=== PATIENT | female | born 1990 | race Caucasian/White ===

== ENCOUNTER 2025-09-26 08:57 | Emergency (ER) | payer OTHER, SELFPAY ==
[2025-09-26 09:11] VITALS: BP 144/93
--- NOTE | 2025-09-26 10:30 | ED.GENMED ---
History of Present Illness
General
Chief Complaint: Generalized Pain
Time Seen by Provider: 09/26/25 10:30
History of Present Illness
History of Present Illness:
FOCUSED PAST MEDICAL HISTORY
- Polycystic kidney disease, anxiety/depression, asthma
REVIEW OF OLD RECORDS
- The patient was seen here with flank pain in January 2023; at that time labs were unremarkable and numerous cysts were noted at both kidneys
Note:
CHIEF COMPLAINT(S)
Abdominal pain and nausea.
HISTORY OF PRESENT ILLNESS
The patient is a 34-year-old female with a history of polycystic kidney disease, presenting with abdominal pain and nausea. The symptoms began on Friday night with mild right-sided pain. She reported that by the following day, her entire body felt
painful, as if bruised, and she experienced significant fullness after minimal food intake, stating, 'I took three spoonfuls and it felt like I had eaten a buffet of food.' She also described ongoing nausea and an inability to eat. The pain,
initially localized to the right side, has since become bilateral.
The patient mentioned a prior ER visit where blood work and imaging indicated kidney cysts, but this episode feels different. She suspects the kidneys might be involved again. The patient reported undergoing an MRCP at [facility], which revealed some
findings, though details were not fully accessible. Recently, she missed a dose of her medications, allopurinol, and potassium, but took them the following day.
PAST MEDICAL AND SURIGICAL HISTORY
Polycystic kidney disease.
EXTERNAL RECORDS REVIEWED
MRCP was performed at [facility], showing concerning findings but specifics were not discussed.
CHRONIC MEDICAL CONDITIONS SIGNIFICANTLY AFFECTING CARE
Polycystic kidney disease.
MEDICATIONS
Allopurinol, Potassium.
PHYSICAL EXAM
General: Alert, no acute distress. Appears fairly comfortable.
Skin: Warm, dry.
Head: Normocephalic, atraumatic.
Neck: Supple, trachea midline.
Eyes, Ears, Nose, Mouth, and Throat: Oral mucosa moist.
Cardiovascular: Normal peripheral perfusion, No edema.
Respiratory: Respirations are non-labored.
Gastrointestinal: Mild right lower quadrant tenderness and mild epigastric tenderness, abdomen nondistended.
Back: Mild tenderness upon percussion on the right side.
Musculoskeletal: Normal range of motion, normal strength.
Neurological: Alert and oriented to person, place, time, and situation, No focal neurological deficit observed.
Psychiatric: Cooperative, appropriate mood & affect.
PROBLEM LIST
Acute: Abdominal pain, Nausea.
Chronic: Polycystic kidney disease.
PLAN
- Administer intravenous fluids.
- Proceed with a CT scan.
- Review prior records, if available, to correlate with current findings and determine if further MRCP with contrast is necessary.
- Monitor kidney function given the history of elevated uric acid levels.
DIFFERENTIAL DIAGNOSIS
The Differential Diagnosis includes, in no particular order and is not limited to:
1. Pyelonephritis
2. Nephrolithiasis (Kidney stones)
3. Cyst infection or rupture in polycystic kidney disease
4. Urinary tract infection
5. Gastroenteritis
6. Appendicitis
7. Inflammatory bowel disease
8. Gallbladder disease
9. Pancreatitis
10. Bowel obstruction.
RADIOLOGY
- CT abdomen pelvis obtained shows PCKD but no acute abnormality
LABS
- White count and hemoglobin unremarkable, chemistries unremarkable, hCG negative
UPDATE
-SUMMARY OF ENCOUNTER
The patient, a 34-year-old female with a history of polycystic kidney disease, presented to the emergency department with abdominal pain and nausea, which began as mild right-sided pain but later became bilateral. The patient reported experiencing
significant fullness after minimal food intake and ongoing nausea. On examination, she had mild tenderness in the right lower quadrant and epigastric region but no signs of acute bleeding or hemorrhage. Radiology indicated numerous renal cysts
consistent with her known kidney condition, but no acute findings were observed. Urinary symptoms were queried to further investigate the abdominal discomfort.
PLAN
Administer intravenous fluids and proceed with a CT scan to assess for any acute abdominal issues. Review prior records to correlate with current findings and determine the necessity of further imaging, such as an MRCP with contrast, given the
patients history. Monitor kidney function due to elevated uric acid levels.
INDEPENDENT REVIEW OF LABS AND INTERPRETATION OF TESTS
My independent interpretation of imaging indicates numerous renal cysts consistent with polycystic kidney disease, with no active bleeding or large fluid collections. There was a trace amount of physiologic pre-fluid, likely normal.
MEDICAL DECISION MAKING
1. Number and Complexity of Problems Addressed: Chronic conditions affecting care include polycystic kidney disease. Differential Diagnosis: Pyelonephritis, Nephrolithiasis (Kidney stones), Cyst infection or rupture in polycystic kidney disease,
Urinary tract infection, Gastroenteritis, Appendicitis, Inflammatory bowel disease, Gallbladder disease, Pancreatitis, Bowel obstruction.
2. Data:
- Category 1: My independent interpretation of the imaging confirmed numerous renal cysts but no acute changes.
3. Risk: Consideration of Admission/Observation: Escalation of care including admission/observation was considered given the complexity and risk of the patients presenting complaint and underlying comorbidities. However, ultimately, the patient is
deemed safe for outpatient management with close follow-up, as the work-up does not reveal any acute life/organ-threatening processes, and symptoms are reasonably controlled.
Phy Exam
Physical Exam
Physical Exam:
See HPI
Course
Orders/Labs/Results
Orders:
Orders
09/26/25 10:25
Complete Blood Count/With Diff Urgent
Comprehensive Metabolic Panel Urgent
HCG, Serum Qualitative Screen Urgent
Comment: ADD ON
09/26/25 10:41
Add On- LAB Urgent
Tests Added?: hcg qual screen
CT Abd/pelvis W Iv Cont Urgent
Comment:
Reason For Exam: diffuse abd pain; h/o PCKD
0.9% Sodium Chloride 1000 ml [Nss] 1,000 ml IV BOLUS
09/26/25 13:18
Urinalysis Reflex To Culture Urgent
Date Specimen was Collected: 09/26/25
Time Specimen was Collected: 13:15
Urine Microscopic Reflex Cult Urgent
Abnormal Lab Results
09/26/25 09/26/25
10: 13:18
MCHC 32.7 L g/dL
(33.0-37.0)
Absolute Lymphs (auto) 1.1 L 10^3/uL
(1.2-3.4)
Glucose 107 H mg/dl
(70-99)
Urine Albumin (Reflex) 1+ A
(Neg - Trace)
09/26/25 10:25
09/26/25 10:25
Vital Signs
Initial and Last Documented VS:
Initial Vital Signs
Temp Pulse Resp BP Pulse Ox
36.5 C 81 20 144/93 98
09/26/25 09:11 09/26/25 09:11 09/26/25 09:11 09/26/25 09:11 09/26/25 09:11
Last Documented Vital Signs
Temp Pulse Resp BP Pulse Ox
36.7 C 69 18 135/93 99
09/26/25 11:10 09/26/25 11:10 09/26/25 11:10 09/26/25 11:10 09/26/25 11:10
*Pulse Oximetry
SaO2: 98
Oxygen Mode of Delivery: Room air
Patient hypoxic: no
*Critical Care Note
Total Time (30-74mins, 75-104mins- exclusive of procedures): Not Applicable
ED Attending Note
-
Portions of this chart may have been created with voice recognition software.� Occasional wrong word or��sound alike� substitutions may have occurred due to the inherent limitations of voice recognition software.
Discharge Plan
Departure
Patient Disposition: Home (Routine Discharge)
Date of Disposition: 09/26/25
Time of Disposition: 14:10
Patient with high blood pressure during this ER visit?: Yes
Discharge Problem:
Abdominal pain
Instructions: Abdominal pain in adults (DC), BLOOD PRESSURE
Prescriptions:
No Action
oxycodone-acetaminophen [Percocet] 5-325 mg tablet
1 tab PO Q6HPRN PRN (Reason: pain) Qty: 10 0RF
Referrals:
Guille Harvey, DO [Family Provider]
Activity Restrictions/Additional Instructions:
Basic blood work is unremarkable. Urinalysis shows no sign of blood nor infection.
CAT scan of the abdomen pelvis with IV contrast:
1. Trace pelvic free fluid, which may be physiologic.
2. Innumerable renal cysts on each side, consistent with polycystic kidney disease. Small hepatic cysts.
Follow with your primary care doctor. Return if worse or other concerns.
Interventions
Interventions:
*Risk Screen - Suicide Last Done: 09/26/25 09:11
*General Assessment Last Done: 09/26/25 11:05
*Neglect/Abuse Screening Last Done: 09/26/25 11:05
*ED COVID-19 Vaccine History Last Done: 09/26/25 11:05
*ED Influenza Vaccine History Last Done: 09/26/25 11:05
[facility] Fall Risk Assessment Tool Last Done: 09/26/25 10:28
Discharge Date and Time
Print Language: SAMI
[2025-09-26 10:35] LABS: Hematocrit 38.8 % (37.0-47.0); Hemoglobin 12.7 g/dL (12.0-16.0); Mean Corp Hgb Conc. 32.7 g/dL (33.0-37.0); Mean Corpuscular Volume 86.6 fL (81.0-99.0); Nucleated Red Blood Cells % 0 %; Platelet Count 193 10^3/uL (130-400); Red Cell Dist. Width 13.0 % (11.5-14.5)
[2025-09-26 10:51] LABS: ALT (SGPT) 18 U/L (0-35); AST (SGOT) 22 U/L (14-36); Albumin 4.2 g/dl (3.5-5.0); Alkaline Phosphatase 97 U/L (38-126); Blood Urea Nitrogen 17 mg/dl (7-17); Calcium 8.7 mg/dl (8.4-10.2); Carbon Dioxide 28 mmol/L (22-30); Chloride 103 mmol/L (98-107); Glucose 107 mg/dl (70-99); Potassium 4.0 mmol/L (3.5-5.1); Sodium 135 mmol/L (135-145); Total Protein 6.9 g/dl (6.3-8.2); eGFR > 60.00
[2025-09-26 11:10] VITALS: BP 135/93; BMI 26.7
[2025-09-26] MEDS: NSS 1000 IV (11:12)
[2025-09-26 11:58] LABS: HCG, Serum Qualitative Screen Negative
[2025-09-26 13:56] LABS: Urine Character Clear (Clear)
[2025-09-26 14:12] LABS: Urine Red Blood Cell None Seen /HPF (0-2); Urine White Cell 0-2 /HPF (0-5)
[2025-09-26 14:32] VITALS: BP 157/106
[2025-09-26 14:35] VITALS: BP 153/94
== END 2025-09-26 14:50 | disposition home or self-care (01) ==
LOC: EMR 08:57
PROVIDERS: EMERGENCY PHYSICIAN Emergency Medicine; FAMILY PHYSICIAN Internal Medicine
DX: R10.9 Unspecified abdominal pain (principal); J45.909 Unspecified asthma, uncomplicated; Q61.3 Polycystic kidney, unspecified
CPT/HCPCS: 99284; 74177; 80053; 81003; 81015; 84703; 85025; 99285; Q9967